=== PATIENT | male | born 1940 | race Caucasian/White ===

== ENCOUNTER 2017-08-03 15:25 | Inpatient (IN) | payer OTHER ==
[2017-08-03] MEDS ORDERED: ONDANSETRON 4 MG/2 ML VIAL IVP PRN (18:27)
[2017-08-03] MEDS ORDERED: ONDANSETRON DISINTEGRATING 4 MG TAB PO PRN (18:27)
[2017-08-03] MEDS ORDERED: PROMETHAZINE HCL 25 MG TAB PO PRN (18:27)
[2017-08-03] MEDS ORDERED: PROMETHAZINE HCL 25 MG/ML INJ IVP PRN (18:27)
[2017-08-03] MEDS ORDERED: ACETAMINOPHEN 325 MG TAB PO PRN (18:27)
[2017-08-03] MEDS ORDERED: traMADol 50 MG TAB PO PRN (18:29)
[2017-08-03] MEDS ORDERED: ACETAMINOPHEN 500 MG TAB PO PRN (18:29)
--- NOTE | 2017-08-03 19:03 | GHP ---
[f rep st] HISTORY AND PHYSICAL DATE OF ADMISSION: 08/03/2017 CHIEF COMPLAINT: Gastric mass. HISTORY OF PRESENT ILLNESS: This is a 77-year-old male with a known history of CLL which has been in remission. He states that over the last month or 2, though, his white count has been climbing and i t appears that he has had a relapse. He has also had a skin lesion on his chin, which he has had in the past, which was biopsied and it is leukemia. For the last month or so, he has been having increa sing epigastric pain. This started more suddenly, but has been worsening continually. Now, the pain is there without eating. Eating makes it slightly better for a short amount of time and then it ret urns. It is kind of, almost like a hunger, boring like pain. He has only vomited once. He is nause ous fairly frequently. No diarrhea. He has had weight loss. He has had fatigue. No night sweats. He underwent EGD today, which showed a large ulcerated gastric mass and was sent to the hospital. REVIEW OF SYSTEMS: A 10-point review of system obtained and otherwise negative. PAST MEDICAL HISTORY: CLL, as above. MEDICATIONS: Reviewed. SOCIAL HISTORY: No smoking. No alcohol. He is . FAMILY HISTORY: No leukemia. PHYSICAL EXAM: VITAL SIGNS: Afebrile, blood pressure is 134/81, heart rate 67, oxygen saturation is 90% on room air. GENERAL: The patient is well developed, in no apparent distress. HEENT: Nonicte kenji sclerae. Extraocular movements intact. Moist mucous membranes. NECK: Supple. No thyromegaly. LUNGS: Good effort. Clear to auscultation bilaterally. CARDIOVASCULAR: Regular rate and rhythm. No murmurs or gallops. ABDOMEN: Positive bowel sounds. There is an epigastric mass that is quite tender. No rebound or guarding. EXTREMITIES: No clubbing, cyanosis, or edema. SKIN: Without truman h. Warm. There is a skin lesion on his chin. NEUROLOGIC: Alert and oriented x3. Moving all 4 ext remities equally. PSYCH: Normal affect. LABORATORY DATA: All pending. IMPRESSION: This is a 77-year-old male with a known history of chronic lymphocytic leukemia, present ing with a gastric mass. PLAN: 1. CLL/gastric mass. Will consult Oncology tomorrow. This was biopsied and apparently, per Dr. Wu of, the biopsy results should be back by tomorrow afternoon. At that point, Oncology can decide on alejandra morgan. 2. Epigastric pain. I am going to try some viscous lidocaine as well as sucralfate. I am also wond ering if stomach acid may be inflaming the ulcerated mass. I will start Protonix, as well. I am goi ng to start on a full liquid diet, although he has been tolerating a regular diet fairly well. We ca n advance if he is tolerating this and his pain is better. /[id number]/MODL
[2017-08-03] MEDS: HYDROmorphONE/DILAUDID 1 MG/ML INJ IVP PRN ×2 (19:06→22:07)
[2017-08-03] MEDS: MBX SOLN 30 ML BOTTLE PO PRN (19:08)
[2017-08-03] MEDS: NS 1,000 ML IV SCH (19:08)
[2017-08-03] MEDS: PANTOPRAZOLE SODIUM 40 MG TAB PO SCH (20:35)
[2017-08-03] MEDS: ASPIRIN 81 MG CHEWABLE TAB PO SCH (20:35)
[2017-08-03] MEDS: SUCRALFATE 1 GM/10 ML UDCUP PO SCH (20:36)
[2017-08-04] MEDS: NS 1,000 ML IV SCH (04:47)
[2017-08-04] MEDS: HYDROmorphONE/DILAUDID 1 MG/ML INJ IVP PRN ×4 (04:54→22:12)
[2017-08-04 05:03] LABS: PLATELET COUNT 81 10^3/uL (150-400)
[2017-08-04] MEDS: LOPERAMIDE HCL 2 MG CAP PO SCH (08:44)
[2017-08-04] MEDS: SUCRALFATE 1 GM/10 ML UDCUP PO SCH ×4 (08:44→21:46)
[2017-08-04] MEDS: PANTOPRAZOLE SODIUM 40 MG TAB PO SCH (08:44)
[2017-08-04] MEDS: PSYLLIUM METAMUCIL 1 PKT PO SCH (09:28)
--- NOTE | 2017-08-04 11:03 | PDMN ---
Medical Necessity Medical necessity: Pt meets IP criteria per MD; est los >2 mn for eval/tx of gastric mass, epigastric pain & nausea; admit for IV pain meds/antiemetics, IVFs , Oncology/Dietary consult; hx chronic lymphocytic leukemia; per H&P & order 08/03
[2017-08-04] MEDS: MBX SOLN 30 ML BOTTLE PO PRN (13:17)
--- NOTE | 2017-08-04 14:06 | HOSPPROG ---
Hospitalist Progress Note Assessment/Plan: DIAGNOSES: -ulcerated gastric mass causing partial pyloric obstruction, question related to his leukemia -significant lymphocytosis with history of CLL and prior treatment; lymphocytes 54,000 today -nausea vomiting abdominal pain notably decreased this point on Carafate and pantoprazole -anemia thrombocytopenia due to his leukemia -pathology from gastric biopsy pending PLANS: p-Await pathology report -Will discuss with Dr. Ireland. Unclear if his gastric masses related to his leukemia or not, I suspected is. Likely either recommend chemotherapy now verses need to do further studies on lymphocytes to assess transformation before determining therapy -Continue current diet to determine how well he tolerates that with current medications, will stop IV fluids at this time. Will need to watch for recurrence of obstructive symptoms -continue PPI and Carafate Reviewed with Dr. Ireland today SUBJECTIVE: So far is able to take his current diet well without nausea vomiting or pain No bowel movement since yesterday morning No fever symptoms no other new symptoms OBJECTIVE Vitals reviewed: Afebrile with stable vital signs Exam: alert oriented skin warm dry color ok resps not labored lungs clear BSs heart regular abd soft nondistended nontender, bowel sounds present limbs warm, no edema iv site ok Lab data: White blood cell count 80481 with 54,000 lymphocytes Mild anemia and thrombocytopenia as well Mild elevation of AST and alkaline phosphatase, bilirubin normal Other chemistries normal Objective: Vital Signs Temp Pulse Resp BP Pulse Ox 36.6 C 84 18 99/65 L 93 08/04/17 11:55 08/04/17 11:55 08/04/17 11:55 08/04/17 11:55 08/04/17 13:44 Laboratory Results 08/04/17 04:45 08/04/17 04:45 08/03/17 08/04/17 08/05/17 06:59 06:59 06:59 Intake Total 2220 Output Total 480 1450 Balance 1740 -1450 - Time Spent With Patient Time Spent with Patient: greater than 35 minutes Time Spent with Patient: Greater than 35 minutes spent on this patients care, greater than 50% of time spent counseling, educating, and coordinating care regarding the above mentioned plan. ICD10 Worksheet Patient Problems: Problems Problem Status Onset CLL (chronic lymphocytic leukemia) Acute - ICD10 Problem Qualifiers (1) CLL (chronic lymphocytic leukemia)
[2017-08-04] MEDS: oxyCODONE IR 5 MG TAB PO PRN (15:31)
--- NOTE | 2017-08-04 15:41 | ASMTCMCOM ---
CM Note CM Note Notes: Pt admitted with abdominal pain, mass. Hx CLL and gastric CA. Biopsy results pending. CM will follow for any d/c needs. Date Signed: 08/04/2017 03:40 PM Electronically Signed By:CLAUDIA Singh
--- NOTE | 2017-08-04 16:18 | SOAPPROG ---
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 D/ W patient and his at the bedside today. I am encouraged that Charles is taking full liquids today w/o distress, so as to be maintained on limited enteral caloric and fluid intake. Will continue IVF hydration over night Will order baseline repeat ECHO to assess cardiac LV function, as to potential need of anthracycline therapy. Will plan Rituxan single agent therapy, anahi. in light of avoiding rapid disease response in lymphoid malignancy involving gastric wall, with admin. tomorrow, if patient stable, followed by discharge perhaps 08/06 , if stable for office follow up and continued Tx. Anticipate adding agent(s) once gastric lymphoid malignancy is identified. D/W patient today. Plan: 1.) IV hydration 2.) Echocardiography 3.) Follow Sx. and labs 4.) Rituxan single agent tomorrow. 5.) Home when stable, perhaps on . 08/04/17 16:18 Subjective: Pt stable this afternoon, taking in full liquid diet without emesis or dry heaves. Has had flatus today and had solid bowel movement yesterday, before EGD procedure. Feels okay this PM, without significant symptoms of distress. Objective: late middle aged WM in NAD, his is at the bedside, VSS, Afebrile HEENT- anicteric, no thrush Neck - supple Mediport- accessed/NT CVS-RR ABD- nondistended. LUQ mass palpable, with palp. Spleen. EXT- w/out edema. Lab data Here: PLT 81, Hgb 12.4, WBC 60.33 Uric Acid, LDH, ESR have been ordered. Vital Signs Temp Pulse Resp BP Pulse Ox 36.8 C 75 18 119/64 94 08/04/17 15:30 08/04/17 15:30 08/04/17 15:30 08/04/17 15:30 08/04/17 15:30 Laboratory Results 08/04/17 04:45 08/04/17 04:45 08/03/17 08/04/17 08/05/17 05:59 05:59 05:59 Intake Total 2220 Output Total 480 1450 Balance 1740 -1450 ICD10 Worksheet Patient Problems: Problems Problem Status Onset CLL (chronic lymphocytic leukemia) Acute
[2017-08-04] MEDS: D5W LR 1,000 ML IV SCH (17:09)
[2017-08-04] MEDS: ALLOPURINOL 300 MG TAB PO SCH (18:15)
[2017-08-04] MEDS: ASPIRIN 81 MG CHEWABLE TAB PO SCH (21:46)
[2017-08-05] MEDS: oxyCODONE IR 5 MG TAB PO PRN ×2 (00:31→08:20)
[2017-08-05] MEDS: D5W LR 1,000 ML IV SCH (02:41)
[2017-08-05] MEDS: SUCRALFATE 1 GM/10 ML UDCUP PO SCH ×4 (08:20→21:19)
[2017-08-05] MEDS: ALLOPURINOL 300 MG TAB PO SCH (09:14)
[2017-08-05] MEDS: PANTOPRAZOLE SODIUM 40 MG TAB PO SCH (09:14)
[2017-08-05] MEDS: PSYLLIUM METAMUCIL 1 PKT PO SCH (09:15)
[2017-08-05] MEDS: LOPERAMIDE HCL 2 MG CAP PO SCH (09:16)
--- NOTE | 2017-08-05 11:27 | SOAPPROG ---
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 D/ W patient and his at the bedside today. I am encouraged that Charles is taking full liquids again today w/o distress, so as to be maintained on limited enteral caloric and fluid intake. Will continue IVF hydration over night, after Rituxan. Will order baseline repeat ECHO to assess cardiac LV function, as to potential need of anthracycline therapy. Will go ahead with Rituxan single agent therapy, anahi. in light of avoiding rapid disease response in lymphoid malignancy involving gastric wall, with admininstration, followed by discharge perhaps 08/06 , if stable for office follow up and continued Tx. Anticipate adding agent(s) once gastric lymphoid malignancy is identified. D/W patient today. His was at the bedside and her concerns were discussed. Plan: 1.) IV hydration 2.) Echocardiography 3.) Follow Sx. and labs 4.) Rituxan single agent today, to monitor for Rituxan related adverse effects through and after Tx. 5.) Home when stable, perhaps on . 08/05/17 11:27 Subjective: Having less discomfort and taking in liquid meals w/out distress. No emesis or dry heaves. No eructations. Having flatus, but no BM in past 24 hours. Objective: 'Sitting up in chair. Took shower earlier this AM. at bedside. Looks comfortable, in NAD. HEENT- anicteric, no oral lesions, Neck- supple Chest- clear anteriorly/posteriorly Mediport- accessed/NT CVS- RSR, no extra HS ABD- mildly tender at upper abd. BS+, soft, palp. Spleen present. EXT- no edema, skin intact Labs noted here. ESR 11 LDH 485 Will review Echocardiography test report. Vital Signs Temp Pulse Resp BP Pulse Ox 36.5 C 88 14 108/66 90 L 01/10/18 08:14 08/05/17 08:14 08/05/17 08:14 08/05/17 08:14 08/05/17 08:14 Laboratory Results 08/05/17 04:40 08/04/17 04:45 08/04/17 08/05/17 08/06/17 05:59 05:59 05:59 Intake Total 2220 3217 Output Total 480 2151 Balance 1740 1066 ICD10 Worksheet Patient Problems: Problems Problem Status Onset CLL (chronic lymphocytic leukemia) Acute
[2017-08-05] MEDS ORDERED: NS 1,000 ML IV PRN (11:53)
[2017-08-05] MEDS ORDERED: NS 500 ML IV PRN (11:53)
[2017-08-05] MEDS ORDERED: DEXAMETHASONE 10 MG/ML VIAL IVP PRN (11:53)
[2017-08-05] MEDS ORDERED: MEPERIDINE 25 MG/ML SYR IVP PRN (11:53)
[2017-08-05] MEDS ORDERED: ACETAMINOPHEN 325 MG TAB PO PRN (11:53)
[2017-08-05] MEDS ORDERED: HYDROCORTISONE 100 MG/2 ML VIAL IVP PRN (11:53)
--- NOTE | 2017-08-05 12:36 | ECHO ---
[email or web address] [address] [address] Main: [phone] Fax: Transthoracic Echocardiogram Name: VICTORIANO CHILDS MR#: [id number] Study Date: 08/05/2017 Study Time: 07:54 AM Date of : 1940 Age: 77 year(s) Height: 182.9 cm (72 in.) Weight: 69.4 kg (153 lb.) BSA: 1.9 m2 Gender: Male Examination: Echo Indication: Pre Chemo, Arrythmia, Eval LV Fx Image Quality: Contrast: Requested by: Victoriano Cho BP: 121 mmHg/67 mmHg Heart Rate: Rhythm: Normal sinus rhythm with ectopy Indication: Pre Chemo, Arrythmia, Eval LV Fx Procedure Staff Foreign Policy Officer: Fernandez Randhawa Reading Physician: Chandana Pittman Requesting Provider: Conclusions: Normal size left ventricle. Normal global systolic LV function. EF is 71 %. The aortic valve is tri-leaflet. Mild tricuspid regurgitation is present. The pulmonary artery pressure is mild to moderately increased. Measurements: Chambers Valvular Assessment AV/MV Valvular Assessment TV/PV Normal Normal Normal Name Value Range Name Value Range Name Value Range IVSd (2D): 0.7 cm (0.6 cm-1.1 TR Vmax: 3.57 mm/s ( - ) cm) TR PGmax: 51 mmHg ( - ) LVDd (2D): 5.0 cm (4.2 cm-5.9 syst. PAP: 56 mmHg ( - ) cm) LVDs (2D): 3.2 cm (2.1 cm-4 cm) LVPWd (2D): 0.8 cm (0.6 cm-1 cm) LVEF (MM): 71 (>=55 %) RVDd(2D): 2.8 cm (1.9 cm-3.8 cmmm) Continued Measurements: Valvular Assessment TV/PV Name Value CVP (est.): 5 mmHg Patient: VICTORIANO CHILDS Study Date: 08/05/2017 Page 1 of 2 07:54 AM Findings: Left Ventricle: Normal size left ventricle. Normal global systolic LV function. EF is 71 %. No regional wall motion abnormality. Ectopy noted during exam.. Right Ventricle: Normal size right ventricle. Aortic Valve: The aortic valve is tri-leaflet. The aortic valve is normal in appearance and function. Tricuspid Valve: Mild tricuspid regurgitation is present. The pulmonary artery pressure is mild to moderately increased. (No Signature Object) Patient: VICTORIANO CHILDS Study Date: 08/05/2017 Page 2 of 2 07:54 AM [id number]
[2017-08-05] MEDS: ACETAMINOPHEN 325 MG TAB PO SCH (12:37)
[2017-08-05] MEDS ORDERED: riTUXimab 700 MG in NS 630 ML IV SCH (13:00)
[2017-08-05] MEDS: HYDROmorphONE/DILAUDID 1 MG/ML INJ IVP PRN ×2 (15:45→21:19)
[2017-08-05] MEDS ORDERED: methylPREDNISolone SOD SUCC 125 MG/2 ML VIAL IVP ONE (16:15)
--- NOTE | 2017-08-05 17:33 | HOSPPROG ---
Hospitalist Progress Note Assessment/Plan: DIAGNOSES: -acute Rituxan reaction during initial infusion today with severe rigors, improved with decrease in infusion rate and treatment of the reaction with standard therapies -ulcerated gastric mass causing partial pyloric obstruction, lymphoid tissue on biopsy with final pathology report pending -partial gastric outlet obstruction related to above mass -either transformation of CLL to a lymphoma or acute leukemia is strongly suspected; significant lymphocytosis with history of CLL and prior treatment; lymphocytes 54,000 -nausea vomiting abdominal pain notably decreased this point on Carafate and pantoprazole -anemia thrombocytopenia due to his leukemia -pathology from gastric biopsy pending PLANS: -Await pathology report -continue Rituxan at lower infusion rate with pretreatment with Benadryl; follow closely for other side effects of Rituxan -Continue current diet to determine how well he tolerates that with current medications, will stop IV fluids at this time. Will need to watch for recurrence of obstructive symptoms -continue PPI and Carafate I reviewed today the patient's progress, findings and Rituxan reaction in detail with Dr. Victoriano Cho. SUBJECTIVE: During my visit with the patient initially he presented to me that he was feeling much better, taking in clear fluid well, no abdominal pain no nausea or vomiting. He had started his 1st dose of Rituxan about an hour before I came in to visit. After I examined the patient and was still talking to him he suddenly developed a severe tight sensation in his abdomen became very uncomfortable and then progressed to severe rigors. The symptoms resolved completely with standard therapies for Rituxan reaction and decrease in the infusion rate and his exam normalized OBJECTIVE Vitals reviewed: Afebrile with stable vital signs Exam: alert oriented As above initially very relaxed but developed severe discomfort with severe rigors during my exam skin warm dry color ok resps not labored lungs clear BSs heart regular abd soft nondistended nontender, bowel sounds present limbs warm, no edema iv site ok Lab data: LDH 485 Echocardiogram showing ejection fraction 71% without regional wall motion abnormalities or other concerning abnormalities Objective: Vital Signs Temp Pulse Resp BP Pulse Ox 37.2 C 102 H 18 100/61 94 08/05/17 17:11 08/05/17 17:11 08/05/17 17:11 08/05/17 17:11 08/05/17 17:11 Laboratory Results 08/05/17 04:40 08/04/17 04:45 08/04/17 08/05/17 08/06/17 06:59 06:59 06:59 Intake Total 2220 3217 Output Total 480 2151 Balance 1741 1066 ICD10 Worksheet Patient Problems: Problems Problem Status Onset CLL (chronic lymphocytic leukemia) Acute - ICD10 Problem Qualifiers (1) CLL (chronic lymphocytic leukemia)
[2017-08-05] MEDS ORDERED: methylPREDNISolone SOD SUCC 125 MG/2 ML VIAL ONE (18:13)
[2017-08-05] MEDS ORDERED: POLYETHYLENE GLYCOL 3350 17 GM PKT PO PRN (20:43)
[2017-08-05] MEDS: ASPIRIN 81 MG CHEWABLE TAB PO SCH (21:19)
[2017-08-06] MEDS: SUCRALFATE 1 GM/10 ML UDCUP PO SCH ×4 (08:59→20:27)
--- NOTE | 2017-08-06 10:11 | SOAPPROG ---
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 D/ W patient and his at the bedside today. I am encouraged that Charles is taking full liquids again today w/o distress, so as to be maintained on limited enteral caloric and fluid intake. Will continue IVF hydration over night, after Rituxan infusion is completed. ECHO shows normal LVEF, > 65 %. Plan: 1.) IV hydration 2.) Echocardiography- done 3.) Follow Sx. and labs 4.) Rituxan single agent to finish today, 08/06, await pathology of gastric biopsy. Continue IVF hydration. Follow CBC and Renal function and serum uric acid. 5.) Home when stable, perhaps on 08/06/08/03, or 08/07/17. 08/06/17 10:11 Subjective: After first Rituxan reaction late yesterday afternoon, there were no other similar Rituxan symptoms of intolerance. Rituxan infused overnight at a low infusion rate with Diphenhydramine Q 4 hours, uneventfully. Now consuming liquid diet comfortably and w/o GI distress or N/V. Having flatus , and no bloating, but no solid stool in past 24 hours. No other sx. Feels well this AM Objective: Sitting up in bedside chair, having liquid breakfast. His is at the bedside. VSS as noted here. HEENT- anicteric, no oral lesions, chin lesion- no change. Neck- supple Chest- clear anteriorly, posteriorly Mediport- NT CVS- RSR, no extra HS ABD- soft, NT, BS+, non distended EXT- intact, w/out edema. Labs as noted here: BUN/Cr 11/0.7 Vital Signs Temp Pulse Resp BP Pulse Ox 36.4 C 75 18 117/69 95 08/06/17 08:31 08/06/17 08:31 08/06/17 08:31 08/06/17 08:31 08/06/17 09:09 Laboratory Results 08/05/17 04:40 08/06/17 05:11 08/05/17 08/06/17 08/07/17 05:59 05:59 05:59 Intake Total 3217 1050 Output Total 2151 1450 Balance 1066 -400 ICD10 Worksheet Patient Problems: Problems Problem Status Onset CLL (chronic lymphocytic leukemia) Acute
[2017-08-06] MEDS: PSYLLIUM METAMUCIL 1 PKT PO SCH (10:19)
[2017-08-06] MEDS: LOPERAMIDE HCL 2 MG CAP PO SCH ×2 (10:20→10:25)
[2017-08-06] MEDS: PANTOPRAZOLE SODIUM 40 MG TAB PO SCH (10:20)
[2017-08-06] MEDS: ALLOPURINOL 300 MG TAB PO SCH (10:20)
[2017-08-06] MEDS: D5W LR 1,000 ML IV SCH ×2 (11:16→20:29)
[2017-08-06] MEDS: ACETAMINOPHEN 325 MG TAB PO SCH (12:42)
[2017-08-06] MEDS: oxyCODONE IR 5 MG TAB PO PRN ×2 (12:46→21:36)
--- NOTE | 2017-08-06 14:19 | HOSPPROG ---
Hospitalist Progress Note Assessment/Plan: DIAGNOSES: -acute Rituxan reaction during initial infusion 08/05 with severe rigors, improved with decrease in infusion rate and treatment of the reaction with standard therapies; was able to complete his Rituxan therapy at lower rate overnight without any problems -ulcerated gastric mass causing partial pyloric obstruction, lymphoid tissue on biopsy with final pathology report pending -partial gastric outlet obstruction related to above mass -either transformation of CLL to a lymphoma or acute leukemia is strongly suspected; significant lymphocytosis with history of CLL and prior treatment; lymphocytes 54,000 -nausea vomiting abdominal pain notably decreased this point on Carafate and pantoprazole -anemia thrombocytopenia due to his leukemia -pathology from gastric biopsy pending PLANS: -Await pathology report; consideration of further chemotherapy once we have that report -continue to monitor closely for any side effects of Rituxan -Continue current diet to determine how well he tolerates that with current medications, will stop IV fluids at this time. Will need to watch for recurrence of obstructive symptoms -continue PPI and Carafate I reviewed today the patient's progress in treatment plan today in detail with Dr. Victoriano Cho. I had a long talk with the patient and his family today about his treatment, side effect possibilities, monitoring, prognosis, his gastric outlet partial obstruction and the potential for improving that with medications but the potential for some other intervention such as surgery or dilation and stenting if he does not open with the chemotherapy Total visit time today greater than 45 min SUBJECTIVE: Feeling much better overall, eating with clear liquids without any difficulty and some full liquids as well. He does feel bloated after eating a bit and stops and rests and within half an hour that resolved. He has had bowel movement today. No abdominal pain or vomiting. No fever symptoms. No further symptoms to suggest any other reaction to the Rituxan OBJECTIVE Vitals reviewed: Afebrile with stable vital signs Exam: alert oriented As above initially very relaxed but developed severe discomfort with severe rigors during my exam skin warm dry color ok resps not labored lungs clear BSs heart regular abd soft nondistended nontender, bowel sounds present limbs warm, no edema iv site ok Lab data: Stable platelets and hemoglobin, white blood cell count decreased to 49,000 Normal renal function, electrolytes, and uric acid Echocardiogram showing ejection fraction 71% without regional wall motion abnormalities or other concerning abnormalities Objective: Vital Signs Temp Pulse Resp BP Pulse Ox 36.6 C 71 14 126/70 H 95 01/11/18 11:16 08/06/17 11:16 08/06/17 11:16 08/06/17 11:16 08/06/17 11:16 Laboratory Results 08/06/17 11:12 08/06/17 05:11 08/05/17 08/06/17 08/07/17 06:59 06:59 06:59 Intake Total 3217 1050 314 Output Total 2151 1450 Balance 1066 -400 314 - Time Spent With Patient Time Spent with Patient: greater than 35 minutes Time Spent with Patient: Greater than 35 minutes spent on this patients care, greater than 50% of time spent counseling, educating, and coordinating care regarding the above mentioned plan. ICD10 Worksheet Patient Problems: Problems Problem Status Onset CLL (chronic lymphocytic leukemia) Acute - ICD10 Problem Qualifiers (1) CLL (chronic lymphocytic leukemia)
--- NOTE | 2017-08-06 16:11 | ASMTCMCOM ---
CM Note CM Note Notes: Met with pt to discuss DC plan. Pt has new mass that may be a lymphoma. Pt lives with his in [place]. Pt states he has been doing well at home and does not anticipate any DC needs. Date Signed: 08/06/2017 04:10 PM Electronically Signed By:Nehal Mccallum LCSW
[2017-08-06] MEDS: ASPIRIN 81 MG CHEWABLE TAB PO SCH (21:36)
[2017-08-07] MEDS: D5W LR 1,000 ML IV SCH (06:23)
[2017-08-07] MEDS: SUCRALFATE 1 GM/10 ML UDCUP PO SCH ×4 (07:51→21:24)
[2017-08-07] MEDS: PANTOPRAZOLE SODIUM 40 MG TAB PO SCH (09:37)
[2017-08-07] MEDS: ALLOPURINOL 300 MG TAB PO SCH (09:37)
[2017-08-07] MEDS: PSYLLIUM METAMUCIL 1 PKT PO SCH (09:37)
[2017-08-07] MEDS: oxyCODONE IR 5 MG TAB PO PRN ×2 (09:39→21:24)
--- NOTE | 2017-08-07 13:12 | SOAPPROG ---
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 EGD shows intraluminal distortion by mural mass, with biopsy per Dr. Dowling showing a lymphoid malignancy (full path report confirms disease transformation to more aggressive histology of lymphoma.) ECHO shows normal LVEF, > 65 %. At this time, there are intervening situations that influence first line Tx for the first cycle. A.) An aggressive regimen may cause greater chance of GIBleeding from the gastric involvement B.) His platelet count is 77,000 and not expected to improve, due to disease involvement. Therefore, Will Tx with R-CVP, and consider R-CHOP with his second cycle of Tx in three weeks, depending on clinical assessment. D/W patient and at length today and with Charles's consent, will go ahead with Tx as D/W [facility] Pharmacist. Plan: 1.) Having obtained consent, will go ahead with CVP Cyclophosphamide 750 mg/M2 , VCR 2 mg IV (both) with BSA 1.9. Rituxan was given on 08/05/17. 2.) Prednisone 100 mg QD x 5 days, starting 08/08. 3.) If stable, home 08/08. 4.) Appt. made for office visit on 08/10 at [facility] for early follow up. 5.) Advance to regular diet today. 6.) Follow VS + Sx. + labs. See orders 08/07/17 13:12 Subjective: Taking diet comfortably , withour UGI sx. Had several bowel movements after laxatives, first one was black looking, then subsequent ones were brown. Objective: Afebrile, VSS as noted here HEENT: anicteric, no oral lesions. 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 Additional studies pending. D/W GI Pathologist at [facility] Path lab. Vital Signs Temp Pulse Resp BP Pulse Ox 36.6 C 66 15 125/88 H 94 08/07/17 12:56 08/07/17 12:56 08/07/17 12:56 08/07/17 12:56 08/07/17 12:56 Laboratory Results 08/07/17 05:25 08/06/17 05:11 08/06/17 08/07/17 08/08/17 05:59 05:59 05:59 Intake Total 1050 2754 1791 Output Total 1450 Balance -400 2754 1791 ICD10 Worksheet Patient Problems: Problems Problem Status Onset CLL (chronic lymphocytic leukemia) Acute
[2017-08-07] MEDS ORDERED: POTASSIUM Cl (KCl) 20 MEQ in NS 1,000 ML IV SCH (14:00)
[2017-08-07] MEDS ORDERED: PALONOSETRON HCL 0.25 MG/5 ML VIAL IVP SCH (15:00)
[2017-08-07] MEDS ORDERED: DEXAMETHASONE SOD PHOSPHATE 10 MG in NS 50 ML IV SCH (15:00)
[2017-08-07] MEDS ORDERED: LORazepam 2 MG/ML INJ IVP SCH (15:00)
[2017-08-07] MEDS ORDERED: ACETAMINOPHEN 325 MG TAB PO SCH (15:00)
[2017-08-07] MEDS ORDERED: CYCLOPHOSPHAMIDE IV SCH (15:30)
[2017-08-07] MEDS ORDERED: NS IV SCH (15:30)
[2017-08-07] MEDS ORDERED: vinCRIStine 2 MG in NS 59 ML IV SCH (16:30)
--- NOTE | 2017-08-07 18:29 | HOSPPROG ---
Hospitalist Progress Note Assessment/Plan: DIAGNOSES: -acute Rituxan reaction during initial infusion 08/05 with severe rigors, improved with decrease in infusion rate and treatment of the reaction with standard therapies; was able to complete his Rituxan therapy at lower rate overnight without any problems -newly identified large B-cell lymphoma in patient with history of CLL presenting as ulcerated gastric mass causing partial pyloric obstruction and typical digestive symptoms -ongoing symptoms of partial gastric outlet obstruction related to above mass but able to eat a liquid diet -ulceration of his gastric mass, currently receiving Carafate and proton pump inhibitor -anemia thrombocytopenia due to his leukemia PLANS: -continue with chemotherapy regimen, monitoring closely for side effects or complications -continue IV hydration and other prophylactic measures -Continue current liquid diet until his partial obstruction symptoms resolve -continue PPI and Carafate I reviewed today the patient's progress in treatment plan today in detail with Dr. Victoriano Cho. SUBJECTIVE: Continues to have some symptoms of partial gastric outlet obstruction but is doing reasonably well on liquid diet as long as he goes slowly enough No pain or fever symptoms No respiratory symptoms No other symptoms to suggest any complications of his tumor treatment so far OBJECTIVE Vitals reviewed: Afebrile with stable vital signs Exam: alert oriented As above initially very relaxed but developed severe discomfort with severe rigors during my exam skin warm dry color ok resps not labored lungs clear BSs heart regular abd soft nondistended nontender, bowel sounds present limbs warm, no edema iv site ok Lab data: Stable platelets and hemoglobin[place] [id number] Normal renal function, electrolytes, and uric acid Echocardiogram showing ejection fraction 71% without regional wall motion abnormalities or other concerning abnormalities Objective: Vital Signs Temp Pulse Resp BP Pulse Ox 36.5 C 74 19 107/65 97 08/07/17 16:10 08/07/17 16:10 08/07/17 16:10 08/07/17 16:10 08/07/17 16:10 Laboratory Results 08/07/17 05:25 08/06/17 05:11 08/06/17 08/07/17 08/08/17 06:59 06:59 06:59 Intake Total 1050 4095 450 Output Total 1450 Balance -400 4095 450 - Time Spent With Patient Time Spent with Patient: greater than 35 minutes Time Spent with Patient: Greater than 35 minutes spent on this patients care, greater than 50% of time spent counseling, educating, and coordinating care regarding the above mentioned plan. ICD10 Worksheet Patient Problems: Problems Problem Status Onset CLL (chronic lymphocytic leukemia) Acute - ICD10 Problem Qualifiers (1) CLL (chronic lymphocytic leukemia)
[2017-08-07] MEDS: ASPIRIN 81 MG CHEWABLE TAB PO SCH (20:09)
[2017-08-08 05:20] VITALS: BP 114/72; RESP 16
[2017-08-08] MEDS: oxyCODONE IR 5 MG TAB PO PRN (05:41)
[2017-08-08 05:46] LABS: PLATELET COUNT 95 10^3/uL (150-400)
[2017-08-08] MEDS: SUCRALFATE 1 GM/10 ML UDCUP PO SCH ×2 (07:38→14:07)
[2017-08-08 08:17] VITALS: PULSE 79; TEMP 97.5; O2SAT 90
[2017-08-08] MEDS: ALLOPURINOL 300 MG TAB PO SCH (08:22)
[2017-08-08] MEDS: PANTOPRAZOLE SODIUM 40 MG TAB PO SCH (08:22)
[2017-08-08] MEDS: PSYLLIUM METAMUCIL 1 PKT PO SCH (08:23)
[2017-08-08] MEDS ORDERED: predniSONE 20 MG TAB PO SCH (09:00)
--- NOTE | 2017-08-08 10:24 | SOAPPROG ---
SOAP Progress Note Assessment/Plan: Assessment: 1) CLL/SLL 2) Gastric lymphoma -- s/p RCVP cycle #1 yesterday Plan: Doing well. Tolerated chemotherapy yesterday. Plan d/c home today. He has a follow up appointment with Dr. Cho on Thursday. He has been given Rx for treatment of H. Pylori by Dr. Cho. Instructed to call me over weekend if any new symptoms. Patient questions answered. 08/08/17 10:20 Subjective: Feels well/ Received R CVP yesterday. Wants to go home. Objective: Vital Signs Temp Pulse Resp BP Pulse Ox 36.4 C 79 16 114/72 90 L 08/08/17 07:55 08/08/17 07:55 08/08/17 07:55 08/08/17 07:55 08/08/17 07:55 Laboratory Results 08/08/17 05:30 08/08/17 05:30 08/07/17 08/08/17 08/09/17 05:59 05:59 05:59 Intake Total 2754 2466 1285 Balance 2754 2466 1285 - Time Spent With Patient Time Spent With Patient: 20 minutes Physical Exam - Physical Exam General Appearance: alert EENT: PERRL/EOMI Respiratory: lungs clear Cardiac/Chest: normal peripheral pulses Abdomen: non-tender, soft Skin: normal color Neuro/Psych: alert, normal mood/affect ICD10 Worksheet Patient Problems: Problems Problem Status Onset CLL (chronic lymphocytic leukemia) Acute
--- NOTE | 2017-08-08 11:32 | GDS ---
[f rep st] DISCHARGE SUMMARY DIAGNOSES: 1. Chronic lymphocytic leukemia/small lymphocytic lymphoma. Here for chemotherapy. 2. 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 3. H. pylori. 4. Epigastric pain. CONSULTATIONS: Dr. Victoriano Cho, oncology. PROCEDURES DONE: Echocardiogram, normal LVEF. HOSPITAL COURSE: The patient is a 77-year-old man with CLL and notable gastric mass per EGD on day o f admission. He was admitted to the oncology and was treated with chemotherapy prescribed by Dr. Mahesh Cho. He was started on second-line therapy of cyclophosphamide, VCR and Rituxan. He tolerate d the chemotherapy relatively well and is ready for discharge post chemotherapy. He did have an echo cardiogram during his initiation of chemo, which showed a normal LVEF. CONDITION ON DISCHARGE: Good. Vital signs are stable. He does have a little bit of discomfort in h is epigastric area and will be treated for H. pylori infection. DISCHARGE MEDICATIONS: Please see discharge medication form. FOLLOWUP INSTRUCTIONS: He will follow up with Dr. Victoriano Cho on Thursday. Total time spent in patient discharge and coordination of care is 35 minutes. /[id number]/MODL
== END 2017-08-08 14:20 | disposition home or self-care (01) | DRG 841 ==
LOC: F1N 16:38
PROVIDERS: ADMIT Internal Medicine; ATTEND Internal Medicine
PROC: 3E0330M Introduction of Antineoplastic, Monoclonal Antibody, into Peripheral Vein, Percutaneous Approach (ICD-10-PCS; principal; 2017-08-05)
PROC: 3E03305 Introduction of Other Antineoplastic into Peripheral Vein, Percutaneous Approach (ICD-10-PCS; 2017-08-07)
DX: C83.33 Diffuse large B-cell lymphoma, intra-abdominal lymph nodes (principal); K31.1 Adult hypertrophic pyloric stenosis; D63.0 Anemia in neoplastic disease; D69.59 Other secondary thrombocytopenia; R68.89 Other general symptoms and signs; R10.84 Generalized abdominal pain; T45.1X5A Adverse effect of antineoplastic and immunosuppressive drugs, initial encounter; Z85.6 Personal history of leukemia; Z85.46 Personal history of malignant neoplasm of prostate
CPT/HCPCS: J1100; J1170; J1200; J1642; J2060; J2405; J2469; J2550; J2930; J7512; J9070; J9310; J9370